=== PATIENT | male | born 1970 | race Asian ===

== ENCOUNTER 2019-01-20 05:38 | Day surgery (SDC) | payer OTHER ==
[~2019-01-20] VITALS: Ht 162.6 cm; Wt 70.5 kg
[~2019-01-20 05:38] MED LIST: CARAFATE; CARAS GTB; PANT40TA4 PO; PANTOPRAZOLE
[2019-01-20 06:31] VITALS: Ht 162.6 cm; Wt 70.5 kg
[2019-01-20 07:01] VITALS: BP 125/88; PULSE 59; RESP 13
[2019-01-20] MEDS ORDERED: HIGH CHOLESTEROL MED (07:12)
[2019-01-20] MEDS ORDERED: MIDAZOLAM 1 MG/ML 2 ML INJ ONE ×2 (08:44→08:45)
[2019-01-20] MEDS ORDERED: FENTAnyl 50 MCG/ML VIAL ONE (08:45)
[2019-01-20 09:01] VITALS: BP 111/76; PULSE 67; RESP 14
== END 2019-01-20 09:19 | disposition home or self-care (01) ==
LOC: GIL 05:38
PROVIDERS: ATTEND Internal Medicine Gastroenterology
DX: K29.50 Unspecified chronic gastritis without bleeding (principal)
CPT/HCPCS: 43239; 88305; 88312; J2250; J3010; Z7610

== ENCOUNTER 2019-03-03 08:32 | Day surgery (SDC) | payer OTHER ==
[~2019-03-03] VITALS: Ht 162.6 cm; Wt 69.1 kg
[~2019-03-03 08:32] MED LIST changes: -CARAS GTB; +HIGH CHOLESTEROL MED; -PANT40TA4 PO
[2019-03-03 10:01] VITALS: Ht 162.6 cm; Wt 69.1 kg
[2019-03-03 10:31] VITALS: BP 111/76; PULSE 68; RESP 20
[2019-03-03] MEDS ORDERED: FENTAnyl 50 MCG/ML VIAL ONE (11:19)
[2019-03-03] MEDS ORDERED: MIDAZOLAM 1 MG/ML 2 ML INJ ONE ×2 (11:20)
[2019-03-03 11:38] VITALS: BP 108/76; PULSE 64; RESP 20
== END 2019-03-03 14:15 | disposition home or self-care (01) ==
LOC: GIL 08:32
PROVIDERS: ATTEND Internal Medicine Gastroenterology
DX: Z12.11 Encounter for screening for malignant neoplasm of colon (principal); K64.8 Other hemorrhoids
CPT/HCPCS: 45378; J2250; J3010; Z7610